=== PATIENT | female | born 1985 | race Caucasian/White ===

== ENCOUNTER 2021-09-21 16:28 | Emergency (ER) | payer MEDICAID, SELFPAY ==
[2021-09-21 16:49] VITALS: BP 95/57; PULSE 91; RESP 20; TEMP 36.7; O2SAT 95; BMI 23.8
--- NOTE | 2021-09-21 17:19 | ED_ITS ---
HPI - Nausea/Vomiting/Diarrhea General: Chief complaint: Nausea/Vomiting/Diarrhea Stated complaint: N/V Ear pain, dizzy Time Seen by Provider: 09/21/21 17:19 History of Present Illness: 35-year-old female comes in today for complaints of right ear pain with episodes of dizziness nausea vomiting and occasional diarrhea. Patient appears unwell but nontoxic. Patient appears in no pain. Patient denies any chronic medical problems. Associated nausea: Yes Associated symtoms: Reports nausea; Denies chest pain Review of Systems Const: Denies: fever(s) ENMT: Reports: ear or mastoid pain Card: Denies: chest pain Resp: Denies: dyspnea GI: Reports: nausea, vomiting and diarrhea Skin/Breast: Denies: rash Physical Exam Const: COMMON NORMALS: alert HENMT: COMMON NORMALS: TM's normal bilaterally TYMPANIC MEMBRANE: TM's normal bilaterally THROAT: posterior oropharynx abnormal erythema Neck/C-Spine: COMMON NORMALS: full ROM and no meningeal signs Resp: COMMON NORMALS: normal respiratory effort and clear to auscultation bilaterally AUSCULTATION: clear to auscultation bilaterally Cardio: COMMON NORMALS: regular rate RATE: regular rate GI: COMMON NORMALS: Soft to palpation and non-tender PALPATION: Yes Soft to palpation Neuro: SENSORIUM/ORIENTATION: Yes alert MENINGEAL SIGNS: Yes no meningeal signs Course Vital Signs: Vital signs: Vital Signs Temperature 98.1 F 09/21/21 16:49 Pulse Rate 91 09/21/21 16:49 Respiratory Rate 20 H 09/21/21 16:49 Blood Pressure 95/57 09/21/21 16:49 Pulse Oximetry 95 09/21/21 16:49 MDM - Nausea/Vomiting/Diarrhea Medical Decision Making 35-year-old female comes in today with some right ear discomfort along with episodes of dizziness with nausea and vomiting. Patient does report some mild diarrhea 2. On exam respirations are even lungs are clear to auscultation. Abdomen soft nontender. Bilateral tympanic membranes are bulging and clear. Posterior pharynx is erythematous. Differential diagnosis includes viral syndrome, labor arthritis, eustachian tube dysfunction. We will go ahead and treat for labyrinthitis with steroids and meclizine. Encourage plenty of fluids and follow-up with primary care for further instruction return to ER for worsening symptoms such as high fever, blood in vomit or stool, or new concerns. Patient reports understanding agreed to plan. Discharge Plan Discharge Patient Disposition: Home Clinical Impression: Labyrinthitis, right ear Condition: Stable Prescriptions: New prednisone 20 mg tablet 20 mg PO BID 5 Days Qty: 10 0RF meclizine 25 mg tablet 25 mg PO TID PRN (Reason: dizziness) Qty: 30 0RF Discharge Orders: Discharge ED (Routine); Ordered 09/21/21 Ordered By: Brandyn Mccoy Discharge Diet: Usual diet Discharge Activity: Increase activity as tolerated Patient Instructions: Labyrinthitis (ED) Activity Restrictions/Additional Instructions: Drink plenty of fluids. Start prednisone 20 mg 1 tablet twice a day for 5 days tomorrow. Use meclizine 25 mg. Every 8 hours as needed for nausea, vomiting, or dizziness. Follow-up with primary care in 1 week for recheck. Return to ER for new concerns. Stand Alone Forms: Work/School Release Coding Level of Care Code ED Vp [facility] for Maxi Curran
[2021-09-21] MEDS: meclizine 25 mg tablet PO (17:43)
[2021-09-21] MEDS: dexamethasone 10 mg/mL INJ IM (17:43)
== END 2021-09-21 17:46 | disposition home or self-care (01) ==
PROVIDERS: Emergency Provider Nurse Practitioner Family
DX: H83.01 Labyrinthitis, right ear (principal)
CPT/HCPCS: 96372; 99283; J1100; J8597

== ENCOUNTER 2025-01-05 13:36 | Emergency (ER) | payer SELFPAY ==
[2025-01-05 13:37] VITALS: BP 99/48; PULSE 86; RESP 18; TEMP 36.7; O2SAT 100; BMI 23.8
--- OUTSIDE RECORDS SUMMARY | 2025-01-05 13:42 | XMS_ITS | Clinical Summary ---
Author Organization [facility] Address [address] Attn: Epic Prelude ADT GEETA JURADO [id number] Care Team Providers Care Tableau Lead Name Role Phone Blake Abreu MD Primary Care Provider [phone] Allergies Active Allergy Reactions Criticality Noted Date Comments Penicillins Hives,Swelling High 02/18/2015 Medications acetaminophen (TYLENOL) 500 mg tablet Take 1,000 mg by mouth every 6 hours as needed for Pain, Mild / Temperature . 04/14/2015 Active Active Problems Problem Noted Date Diagnosed Date Tobacco use 02/18/2015 Immunizations Immunization Administration Dates Next Due Influenza Vaccine Split 3+ Yrs PF IM 12/29/2016 Family History Medical History Relation Name Comments Respiratory Disease Father Cancer Maternal Grandfather prostat e Breast Cancer Maternal Grandmother Ovarian Cancer Maternal Grandmother Diabetes Mother Cancer Paternal Grandfather prostat e cancer Heart Disease Paternal Grandfather Respiratory Disease Paternal Grandfather Heart Disease Paternal Grandmother Colon Cancer Neg Hx Relation Name Status Comments Father Maternal Grandfather Maternal Grandmother Mother Paternal Grandfather Paternal Grandmother Social History Tobacco Use Types Packs/Day Years Used Date Smoking Tobacco: Every Day Cigarettes Smokeless Tobacco: Former Quit: 03/14/1998 Tobacco Cessation:Ready to Q uit: No; Counseling Given: Yes Alcohol Use Standard Drinks/Week Comments Yes 0 (1 standard drink = 0.6 oz pur e alcohol) Comments No Sex and Gender Information Value Date Recorded Sex Assigned at Not on file Legal Sex Female 7:12 AM [employer] Gender Identity Not on file Sexual Orientation Not on file Last Filed Vital Signs Vital Sign Reading Time Taken Comments Blood Pressure 120/64 12/03/2022 9:20 AM CDT Pulse 108 12/03/2022 9:20 AM CDT Temperature 36.3 C (97.4 F) 12/03/2022 9:20 AM CDT Respiratory Rate 18 12/03/2022 9:20 AM CDT Oxygen Saturation 99% 12/03/2022 9:20 AM CDT Inhaled Oxygen Concentration - - Weight 51.9 kg (114 lb 6 oz) 12/03/2022 9:20 AM CDT Height 157.5 cm (5' 2 ) 12/03/2022 9:20 AM CDT Body Mass Index 20.92 12/03/2022 9:20 AM CDT Plan of Treatment Health Maintenance Due Date Last Done Comments DTAP/TDAP/TD VACCINES (1 - Tdap) 12/08/2003 HEPATITIS B VACCINES (1 of 3 - 19+ 3-dose series) 12/08/2003 Preventative Visit-Managed Medicaid 12/08/2003 HPV/Cotest (21-29) 2005 HPV VACCINES (1 - 3-dose SCDM series) 12/08/2011 CERVICAL CANCER SCREENING 2014 HPV/Cotest (30-65) 2014 PAP SMEAR 2014 INFLUENZA VACCINE (#1) 2024 12/03/2022, 2016 BREAST CANCER SCREENING 2024 Insurance MEDICAID Care Teams Tableau Lead Relationship Specialty Start Date End Date Blake Abreu MD [address] [id number] PCP - General Family Practice 09/08/18
[2025-01-05 15:14] LABS: Hematocrit 42.7 % (36-47); Hemoglobin 13.90 g/dL (11.27-16.99); Mean Corpuscular HGB Conc 32.6 g/dL (30-55); Mean Corpuscular Hemoglobin 30.8 pg (27-33); Mean Corpuscular Volume 94.5 fl (85-98); Nucleated Red Blood Cells % 0 %; Platelet Count 223 10^3/cmm (157-399); Red Blood Count 4.52 10^6/uL (3.85-5.65); White Blood Count 8.65 10^3/uL (3.29-11.43)
[2025-01-05 15:23] LABS: HCG, Serum Qual Negative (Negative)
[2025-01-05 15:39] LABS: Alanine Aminotransferase 8 U/L (0-33); Albumin Level 4.0 g/dL (3.5-5.2); Alkaline Phosphatase 74 U/L (35-105); Anion Gap 15.0 (5-19); Aspartate Amino Transferase 11 U/L (0-32); Blood Urea Nitrogen 4 mg/dL (6-20); Calcium 8.3 mg/dL (8.5-10.5); Carbon Dioxide 21 mmol/L (22-29); Chloride 102 mmol/L (98-107); Creatinine Clr Calc Pharmacy 126.6661; Globulin 1.8 g/dL (1.3-4.6); Glucose 105 mg/dL (65-115); Osmolality Calculated 275 mOsm/kg (285-295); Potassium 4.0 mmol/L (3.5-5.1); Sodium 134 mmol/L (136-145); Total Protein 5.8 g/dL (6.6-8.7)
--- NOTE | 2025-01-05 15:42 | ED_ITS ---
HPI - General Adult 2 General: Chief complaint: Vaginal Bleeding Stated complaint: vaginal bleeding(8xdays) Time Seen by Provider: 01/05/25 14:48 History of Present Illness: 39-year-old female presents emergency ro om complaining of heavy bleeding for the last 8 days. She previously had not had a cycle for 2 months. She has not had any lightheadedness or dizziness. No dysuria urgency or frequency no vaginal discharge no pelvic pain. Mild cramping intermittently. Patient reports positive home test. Associated symptoms: Deny chest pain, dyspnea or rash Related Data Previous Rx's ?Medication ?Instructions ?Recorded meclizine 25 mg tablet 25 mg PO TID PRN dizziness # 30 tabs 09/21/21 Allergies Allergy/AdvReac Type Severity Reaction Status Date / Time Penicillins Allergy ALGY-Wheezi Verified 01/05/25 13:42 ng Review of Systems 2 Const: Denies: fever(s) or chills Card: Denies: chest pain Resp: Denies: dyspnea GI: Denies: abdominal pain : Denies: dysuria, urinary frequency or urinary urgency Musc: Denies: neck pain or back pain Skin/Breast: Denies: rash Physical Exam 2 Const: GENERAL APPEARANCE: cooperative ORIENTATION/CONSCIOUSNESS: Yes awake, Yes oriented to person, Yes oriented to place and Yes oriented to time HENMT: COMMON NORMALS: normocephalic, atraumatic and hearing grossly normal bilaterally HEAD & SCALP: normocephalic and atraumatic Resp: COMMON NORMALS: normal respiratory effort, No retractions, No use of accessory muscles and clear to auscultation bilaterally AUSCULTATION: clear to auscultation bilaterally Cardio: COMMON NORMALS: regular rate, regular rhythm and No murmurs present (Cardio) RATE: regular rate RHYTHM: regular rhythm GI: COMMON NORMALS: Soft to palpation and No hepatosplenomegaly present A USCULTATION: Yes normoactive bowel sounds PALPATION: Yes Soft to palpation, No Tenderness to palpation present (GI), No Guarding due to palpation present (GI) and Yes No hepatosplenomegaly present Extremity: COMMON NORMALS: normal to inspection, capillary refill normal, no clubbing, cyanosis or edema, no calf tenderness and no pedal edema Neuro: SENSORIUM/ORIENTATION: Yes oriented to person, Yes oriented to place and Yes oriented to time Skin: COMMON NORMALS: no rashes or lesions noted GENERAL SKIN EXAM: no rashes or lesions noted Course 2 Vital Signs: Vital signs: Vital Signs Temperature 98.0 F 01/05/25 13:37 Pulse Rate 86 01/05/25 13:37 Respiratory Rate 18 01/05/25 13:37 Blood Pressure 99/48 01/05/25 13:37 Pulse Oximetry 100 01/05/25 13:37 Oxygen Delivery Me thod Room Air 01/05/25 13:37 MDM - General Adult Medical Decision Making Serum beta-hCG negative hemoglobin stable. Suspect patient has dysfunctional uterine bleeding. We discussed progesterone withdrawal bleed patient ultimately declined she will. To run its course follow-up with her primary care doctor. If is any lightheadedness dizziness return to the emergency room to reevaluate. Hemoglobin stable at this time. Medical Records I reviewed the patient's medical records. Lab Data I reviewed the patient's lab results. 01/05/25 15:07 01/05/25 15:07 Laboratory Results WBC 8.65 10^3/uL (3.29-11.43) 01/05/25 15:07 RBC 4.52 10^6/uL (3.85-5.65) 01/05/25 15:07 Hgb 13.90 g/dL (11.27-16.99) 01/05/25 15:07 Hct 42.7 % (36-47) 01/05/25 15:07 MCV 94.5 fl (85-98) 01/05/25 15:07 MCH 30.8 pg (27-33) 01/05/25 15:07 MCHC 32.6 g/dL (30-55) 01/05/25 15:07 RDW 12.3 % (12.1-15.1) 01/05/25 15:07 Plt Count 223 10^3/cmm (157-399) 01/05/25 15:07 MPV 10.3 fL (7.4-10.4) 01/05/25 15:07 Neut % (Auto) 60.1 % 01/05/25 15:07 Lymph % (Auto) 32.8 % 01/05/25 15:07 [place] % (Auto) 5.2 % 01/05/25 15:07 Eos % (Auto) 0.9 % 01/05/25 15:07 Baso % (Auto) 0.7 % 01/05/25 15:07 Neut # (Auto) 5.19 10^3/uL (1.8-7.7) 01/05/25 15:07 Lymph # (Auto) 2.8 10^3/uL (0.8-4.8) 01/05/25 15:07 [place] # (Auto) 0.5 10^3/uL (0.2-0.9) 01/05/25 15:07 Eos # (Auto) 0.1 10^3/uL (0.0-0.8) 01/05/25 15:07 Baso # (Auto) 0.1 10^3/uL (0.0-0.1) 01/05/25 15:07 Nucleated RBC % (auto) 0 % 01/05/25 15:07 Nucleated RBCs # 0.0 /100WBC 01/05/25 15:07 Sodium 134 mmol/L (136-145) L 01/05/25 15:07 Potassium 4.0 mmol/L (3.5-5.1) 01/05/25 15:07 Chloride 102 mmol/L (98-107) 01/05/25 15:07 Carbon Dioxide 21 mmol/L (22-29) L 01/05/25 15:07 Anion Gap 15.0 (5-19) 01/05/25 15:07 BUN 4 mg/dL (6-20) L 01/05/25 15:07 Creatinine 0.5 mg/dL (0.5-0.9) 01/05/25 15:07 GFR Calculation 136.6 mL/min (90-130) H 01/05/25 15:07 Glucose 105 mg/dL (65-115) 01/05/25 15:07 Calculated Osmolality 275 mOsm/kg (285-295) L 01/05/25 15:07 Calcium 8.3 mg/dL (8.5-10.5) L 01/05/25 15:07 Total Bilirubin 0.2 mg/dL (0.15-1.2) 01/05/25 15:07 AST 11 U/L (0-32) 01/05/25 15:07 ALT 8 U/L (0-33) 01/05/25 15:07 Alkaline Phosphatase 74 U/L (35-105) 01/05/25 15:07 Total Protein 5.8 g/dL (6.6-8.7) L 01/05/25 15:07 Albumin 4.0 g/dL (3.5-5.2) 01/05/25 15:07 Globulin 1.8 g/dL (1.3-4.6) 01/05/25 15:07 HCG, Qual Negative (Negative) 01/05/25 15:07 Ser , Semi-Qnt Cancelled 01/05/25 15:07 Blood Type O Positive 01/05/25 15:07 Rho(D) Type Rh positive 01/05/25 15:07 No radiology studies performed this visit Discharge Plan Discharge Patient Disposition: Home Clinical Impression: Dysfunctional uterine bleeding Condition: Stable Prescriptions: No Action meclizine 25 mg tablet 25 mg PO TID PRN (Reason: dizziness) Qty: 30 0RF Discharge Orders: Discharge ED (Routine); Ordered 01/05/25 Ordered By: Gulshan Coombs Discharge Diet: Usual diet Discharge Activity: Increase activity as tolerated Patient Instructions: Opioid Safety, Pain Management, Patient Portal & Priscila Instructions Activity Restrictions/Additional Instructions: Thank you for choosing [facility] for your healthcare needs today. It is very important that you follow up as instructed or that you return to the Emergency Department should you have concerns or if your condition changes or worsens in any way. Emergency department visits are focused on emergent conditions, in some cases you may require further evaluation on an outpatient basis. You were seen in the emergency room with complaints of heavy vaginal bleeding. Your beta-hCG was negative indicating you are not . Your hemoglobin is stable. Recommend following up with your primary care doctor within the next 3 to 5 days sooner if you have further problems. (Please note that included in your discharge packet is information concerning opioid safety and pain management. This information is given to all patients were discharged from the ER regardless of their discharge diagnosis or the medicines they usually take or are prescribed.) Print Language: [place] Coding Level of Care Code ED Laboratory Apparatus Glass Blower for Maxi Curran
== END 2025-01-05 16:08 | disposition home or self-care (01) ==
PROVIDERS: Emergency Provider Family Medicine
DX: N93.8 Other specified abnormal uterine and vaginal bleeding (principal)
CPT/HCPCS: 36415; 80053; 84703; 85025; 86900; 99283